=== PATIENT | male | born 1935 | race Caucasian/White ===

== ENCOUNTER 2017-11-08 15:39 | Inpatient (IN) ==
[2017-11-08] MEDS ORDERED: ONDANSETRON 4 MG/2 ML VIAL IV PRN (19:58)
[2017-11-08] MEDS ORDERED: ACETAMINOPHEN 325 MG TABLET PO PRN (19:58)
[2017-11-08] MEDS: MEROPENEM 1,000 MG in SODIUM CHLORIDE 0.9% 100 ML IV SCH (21:04)
[2017-11-08 22:04] LABS: Basophils % 0.4 % (0.0-0.8); Eosinophils # 0.1 10*3/uL (0.0-0.87); Hematocrit 39.2 VOL% (42.0-52.0); Hemoglobin 13.6 GM/DL (14.0-18.0); Immature Granulocytes % 0.4 %; Immature Granulocytes Absolute 0.02 #; Lymphocytes # 0.7 10*3/uL (1.4-4.0); Lymphocytes % 12.7 % (21.2-54.2); Mean Corpuscular HGB Conc 34.7 GM/DL (32-36); Mean Corpuscular Hemoglobin 32 PG (27-34); Mean Corpuscular Volume 92.2 FL (87-102); Mean Platelet Volume 9.5 FL (9.6-12.0); Monocytes # 0.4 10*3/uL (0.11-0.8); Monocytes % 7.9 % (1.7-12.7); Neutrophils # 4.2 10*3/uL (1.4-7.4); Neutrophils % 76.6 % (38.7-73.9); Platelet Count 230 T/CUMM (130-400); Red Blood Count 4.25 MC/CUMM (3.8-5.5); White Blood Count 5.4 T/CUMM (4-12)
[2017-11-08 22:38] LABS: Alanine Aminotransferase 46 U/L (16-61); Albumin 2.5 G/DL (3.4-5.0); Alkaline Phosphatase 201 U/L (45-117); Aspartate Amino Transferase 27 U/L (0-37); Blood Urea Nitrogen 16 MG/DL (7-18); Calcium 8.9 MG/DL (8.5-10.1); Glucose 117 MG/DL (74-106); Osmolality,Calculated 276.7 MOS/KG (273-304); Potassium 3.8 MMOL/L (3.5-5.1); Sodium 138 MMOL/L (136-145); Total Protein 7.5 G/DL (6.4-8.3); Troponin I 0.018 NG/ML (0.00-0.045)
[2017-11-09 04:19] LABS: Basophils % 0.5 % (0.0-0.8); Eosinophils # 0.2 10*3/uL (0.0-0.87); Eosinophils % 2.7 % (0.00-10.9); Hematocrit 35.6 VOL% (42.0-52.0); Hemoglobin 12.1 GM/DL (14.0-18.0); Immature Granulocytes % 0.5 %; Immature Granulocytes Absolute 0.03 #; Lymphocytes # 0.8 10*3/uL (1.4-4.0); Lymphocytes % 12.3 % (21.2-54.2); Mean Corpuscular Hemoglobin 32 PG (27-34); Mean Corpuscular Volume 93.2 FL (87-102); Mean Platelet Volume 9.2 FL (9.6-12.0); Monocytes # 0.7 10*3/uL (0.11-0.8); Monocytes % 10.6 % (1.7-12.7); Neutrophils # 4.7 10*3/uL (1.4-7.4); Neutrophils % 73.4 % (38.7-73.9); Platelet Count 205 T/CUMM (130-400); Red Blood Count 3.82 MC/CUMM (3.8-5.5); Red Cell Distribution Width 13.2 % (9.3-17.3); White Blood Count 6.3 T/CUMM (4-12)
[2017-11-09 05:00] LABS: Alanine Aminotransferase 39 U/L (16-61); Albumin 2.3 G/DL (3.4-5.0); Alkaline Phosphatase 181 U/L (45-117); Aspartate Amino Transferase 25 U/L (0-37); Blood Urea Nitrogen 17 MG/DL (7-18); Calcium 8.5 MG/DL (8.5-10.1); Cholesterol 125 MG/DL (50-200); Glucose 100 MG/DL (74-106); HDL Cholesterol 28 MG/DL (40-60); Osmolality,Calculated 282.3 MOS/KG (273-304); Potassium 4.3 MMOL/L (3.5-5.1); Risk Ratio 4.46; Sodium 141 MMOL/L (136-145); Total Protein 6.9 G/DL (6.4-8.3); Triglycerides 86 MG/DL (2-150); Troponin I 0.023 NG/ML (0.00-0.045); VLDL CHOLESTEROL 17.2 MG/DL
[2017-11-09] MEDS: COENZYME Q10 100 MG CAPSULE PO SCH (08:38)
[2017-11-09] MEDS: CLOPIDOGREL 75 MG TABLET PO SCH (08:38)
[2017-11-09] MEDS: PANTOPRAZOLE 40 MG TABLET PO SCH (08:38)
[2017-11-09] MEDS: ISOSORBIDE DINITRATE 20 MG TABLET PO SCH (08:38)
[2017-11-09] MEDS: ASPIRIN EC 81 MG TABLET PO SCH (08:38)
[2017-11-09] MEDS: LOSARTAN 25 MG TABLET PO SCH (08:38)
[2017-11-09] MEDS: MULTIVITAMIN (CENTRUM) TABLET PO SCH (08:38)
[2017-11-09] MEDS: ASCORBIC ACID 500 MG TABLET PO SCH (08:38)
[2017-11-09] MEDS: FUROSEMIDE 40 MG TABLET PO SCH (08:38)
[2017-11-09] MEDS: DUTASTERIDE 0.5 MG CAPSULE PO SCH (08:38)
[2017-11-09] MEDS: MEROPENEM 1,000 MG in SODIUM CHLORIDE 0.9% 100 ML IV SCH ×2 (08:39→20:40)
[2017-11-09] MEDS: ENOXAPARIN 40 MG/0.4 ML SYRINGE SUBCUT SCH (08:39)
[2017-11-09] MEDS: CARVEDILOL 6.25 MG TABLET PO SCH (08:41)
[2017-11-09] MEDS: ALBUTEROL 2.5 MG/3 ML NEB RESP TX SCH ×2 (12:52→19:02)
[2017-11-09 15:04] LABS: Apearance,Urine CLEAR (Clear); Bilirubin,Urine Negative (Negative); Blood, Urine Negative (Negative); Glucose,Urine (UA) Negative (Negative); Ketones,Urine Negative (Negative); Mucus,Urine Occasional /LPF (Occasional); Nitrite,Urine Negative (Negative); Protein,Urine Negative; RBC,Urine 1 /HPF (0-4); Urine Color Yellow (Yellow); Urine Urobilinogen < 2.0 EU/DL (0.2-1.0); WBC,Urine <1 /HPF (0-6)
[2017-11-10] MEDS: ALBUTEROL 2.5 MG/3 ML NEB RESP TX SCH ×4 (01:14→20:05)
[2017-11-10] MEDS: MULTIVITAMIN (CENTRUM) TABLET PO SCH (08:19)
[2017-11-10] MEDS: FUROSEMIDE 40 MG TABLET PO SCH (08:19)
[2017-11-10] MEDS: PANTOPRAZOLE 40 MG TABLET PO SCH (08:19)
[2017-11-10] MEDS: CLOPIDOGREL 75 MG TABLET PO SCH (08:19)
[2017-11-10] MEDS: ISOSORBIDE DINITRATE 20 MG TABLET PO SCH (08:19)
[2017-11-10] MEDS: DUTASTERIDE 0.5 MG CAPSULE PO SCH (08:19)
[2017-11-10] MEDS: LOSARTAN 25 MG TABLET PO SCH (08:19)
[2017-11-10] MEDS: ASPIRIN EC 81 MG TABLET PO SCH (08:19)
[2017-11-10] MEDS: CARVEDILOL 6.25 MG TABLET PO SCH (08:19)
[2017-11-10] MEDS: ASCORBIC ACID 500 MG TABLET PO SCH (08:19)
[2017-11-10] MEDS: ENOXAPARIN 40 MG/0.4 ML SYRINGE SUBCUT SCH (08:21)
[2017-11-10] MEDS: MEROPENEM 1,000 MG in SODIUM CHLORIDE 0.9% 100 ML IV SCH ×2 (08:22→20:29)
[2017-11-10] MEDS: COENZYME Q10 100 MG CAPSULE PO SCH (08:24)
[2017-11-11] MEDS: ALBUTEROL 2.5 MG/3 ML NEB RESP TX SCH ×4 (00:47→19:28)
[2017-11-11 05:52] LABS: Basophils % 0.4 % (0.0-0.8); Eosinophils # 0.1 10*3/uL (0.0-0.87); Eosinophils % 1.9 % (0.00-10.9); Hematocrit 38.5 VOL% (42.0-52.0); Immature Granulocytes % 0.4 %; Immature Granulocytes Absolute 0.03 #; Lymphocytes # 0.6 10*3/uL (1.4-4.0); Lymphocytes % 8.7 % (21.2-54.2); Mean Corpuscular HGB Conc 33.8 GM/DL (32-36); Mean Corpuscular Hemoglobin 32 PG (27-34); Mean Corpuscular Volume 93.2 FL (87-102); Mean Platelet Volume 9.5 FL (9.6-12.0); Monocytes # 0.6 10*3/uL (0.11-0.8); Monocytes % 9.1 % (1.7-12.7); Neutrophils # 5.6 10*3/uL (1.4-7.4); Neutrophils % 79.5 % (38.7-73.9); Platelet Count 207 T/CUMM (130-400); Red Blood Count 4.13 MC/CUMM (3.8-5.5); Red Cell Distribution Width 13.1 % (9.3-17.3)
[2017-11-11 06:06] LABS: Calcium 8.8 MG/DL (8.5-10.1); Osmolality,Calculated 277.7 MOS/KG (273-304); Potassium 4.4 MMOL/L (3.5-5.1)
[2017-11-11] MEDS ORDERED: BENZONATATE 100 MG CAPSULE PO ONE (09:00)
[2017-11-11] MEDS ORDERED: MEPERIDINE 25 MG/1 ML VIAL IM ONE (09:00)
[2017-11-11] MEDS ORDERED: diphenhydrAMINE 50 MG/1 ML VIAL IM ONE (09:00)
[2017-11-11] MEDS ORDERED: LIDOCAINE 2% 20 ML VIAL RESP TX ONE (09:30)
[2017-11-11] MEDS ORDERED: LIDOCAINE 1% 20 ML VIAL MISC INJ ONE (10:26)
[2017-11-11] MEDS: FUROSEMIDE 40 MG TABLET PO SCH (12:41)
[2017-11-11] MEDS: predniSONE 10 MG TABLET PO SCH (12:41)
[2017-11-11] MEDS: DUTASTERIDE 0.5 MG CAPSULE PO SCH (12:41)
[2017-11-11] MEDS: ASPIRIN EC 81 MG TABLET PO SCH (12:42)
[2017-11-11] MEDS: ASCORBIC ACID 500 MG TABLET PO SCH (12:42)
[2017-11-11] MEDS: CARVEDILOL 6.25 MG TABLET PO SCH (12:42)
[2017-11-11] MEDS: LOSARTAN 25 MG TABLET PO SCH (12:42)
[2017-11-11] MEDS: PANTOPRAZOLE 40 MG TABLET PO SCH (12:43)
[2017-11-11] MEDS: ISOSORBIDE DINITRATE 20 MG TABLET PO SCH (12:43)
[2017-11-11] MEDS: MULTIVITAMIN (CENTRUM) TABLET PO SCH (12:43)
[2017-11-11] MEDS: COENZYME Q10 100 MG CAPSULE PO SCH (12:44)
[2017-11-11] MEDS: MEROPENEM 1,000 MG in SODIUM CHLORIDE 0.9% 100 ML IV SCH ×2 (12:44→20:15)
[2017-11-11] MEDS: ACETYLCYSTEINE 600 MG CAPSULE PO SCH (20:15)
[2017-11-12] MEDS: ALBUTEROL 2.5 MG/3 ML NEB RESP TX SCH ×3 (00:56→13:33)
[2017-11-12 05:54] LABS: Basophils % 0.1 % (0.0-0.8); Eosinophils % 0.3 % (0.00-10.9); Hematocrit 38.1 VOL% (42.0-52.0); Hemoglobin 12.8 GM/DL (14.0-18.0); Immature Granulocytes % 0.6 %; Immature Granulocytes Absolute 0.04 #; Lymphocytes # 0.8 10*3/uL (1.4-4.0); Lymphocytes % 11.7 % (21.2-54.2); Mean Corpuscular HGB Conc 33.6 GM/DL (32-36); Mean Corpuscular Hemoglobin 31 PG (27-34); Mean Corpuscular Volume 92.9 FL (87-102); Mean Platelet Volume 9.4 FL (9.6-12.0); Monocytes # 0.5 10*3/uL (0.11-0.8); Monocytes % 6.7 % (1.7-12.7); Neutrophils # 5.6 10*3/uL (1.4-7.4); Neutrophils % 80.6 % (38.7-73.9); Platelet Count 199 T/CUMM (130-400); Red Cell Distribution Width 12.9 % (9.3-17.3); White Blood Count 6.9 T/CUMM (4-12)
[2017-11-12 06:38] LABS: Calcium 9.2 MG/DL (8.5-10.1); Osmolality,Calculated 282.5 MOS/KG (273-304); Potassium 4.4 MMOL/L (3.5-5.1)
[2017-11-12] MEDS: ISOSORBIDE DINITRATE 20 MG TABLET PO SCH (09:09)
[2017-11-12] MEDS: CARVEDILOL 6.25 MG TABLET PO SCH (09:09)
[2017-11-12] MEDS: PANTOPRAZOLE 40 MG TABLET PO SCH (09:09)
[2017-11-12] MEDS: ASCORBIC ACID 500 MG TABLET PO SCH (09:09)
[2017-11-12] MEDS: CLOPIDOGREL 75 MG TABLET PO SCH (09:09)
[2017-11-12] MEDS: LOSARTAN 25 MG TABLET PO SCH (09:09)
[2017-11-12] MEDS: ACETYLCYSTEINE 600 MG CAPSULE PO SCH (09:09)
[2017-11-12] MEDS: predniSONE 10 MG TABLET PO SCH (09:10)
[2017-11-12] MEDS: FUROSEMIDE 40 MG TABLET PO SCH (09:10)
[2017-11-12] MEDS: MULTIVITAMIN (CENTRUM) TABLET PO SCH (09:10)
[2017-11-12] MEDS: DUTASTERIDE 0.5 MG CAPSULE PO SCH (09:10)
[2017-11-12] MEDS: COENZYME Q10 100 MG CAPSULE PO SCH (09:10)
[2017-11-12] MEDS: MEROPENEM 1,000 MG in SODIUM CHLORIDE 0.9% 100 ML IV SCH (09:10)
[2017-11-12] MEDS: ASPIRIN EC 81 MG TABLET PO SCH (09:10)
[2017-11-12] MEDS: ENOXAPARIN 40 MG/0.4 ML SYRINGE SUBCUT SCH (09:10)
[2017-11-12] MEDS ORDERED: INFLUENZA VIRUS VACCINE 0.5 ML SYRINGE IM ONE (14:33)
[2017-11-12 20:10] VITALS: BP 125/48
== END 2017-11-12 15:45 | disposition home or self-care (01) | DRG 167 ==
LOC: N.5E 17:39 → SUATTDRO 17:39 → N.5E 11-12 15:08
PROVIDERS: ADMIT Internal Medicine; ATTEND Internal Medicine

== ENCOUNTER 2017-11-24 21:47 | Inpatient (IN) ==
[2017-11-25] MEDS ORDERED: ALBUTEROL 2.5 MG/3 ML NEB RESP TX PRN (00:11)
[2017-11-25] MEDS ORDERED: INFLUENZA VIRUS VACCINE 0.5 ML SYRINGE IM ONE (00:13)
[2017-11-25] MEDS ORDERED: ONDANSETRON 4 MG/2 ML VIAL IV PRN (00:36)
[2017-11-25] MEDS ORDERED: DOCUSATE SODIUM 100 MG CAPSULE PO PRN (00:36)
[2017-11-25] MEDS ORDERED: ACETAMINOPHEN 325 MG TABLET PO PRN (00:36)
[2017-11-25] MEDS ORDERED: SODIUM CHLORIDE 0.9% 1,000 ML IV SCH (01:00)
[2017-11-25] MEDS: ALBUTEROL/IPRATROPIUM 3 ML NEB RESP TX SCH ×4 (01:11→18:40)
[2017-11-25 03:12] LABS: Basophils % 0.2 % (0.0-0.8); Eosinophils # 0.2 10*3/uL (0.0-0.87); Eosinophils % 1.7 % (0.00-10.9); Hemoglobin 12.2 GM/DL (14.0-18.0); Immature Granulocytes % 0.9 %; Lymphocytes # 0.7 10*3/uL (1.4-4.0); Lymphocytes % 6.4 % (21.2-54.2); Mean Corpuscular HGB Conc 32.1 GM/DL (32-36); Mean Corpuscular Hemoglobin 30 PG (27-34); Mean Corpuscular Volume 93.8 FL (87-102); Mean Platelet Volume 10.3 FL (9.6-12.0); Monocytes # 0.9 10*3/uL (0.11-0.8); Monocytes % 7.8 % (1.7-12.7); Platelet Count 124 T/CUMM (130-400); Red Blood Count 4.05 MC/CUMM (3.8-5.5); Red Cell Distribution Width 13.5 % (9.3-17.3); White Blood Count 10.9 T/CUMM (4-12)
[2017-11-25 03:52] LABS: Albumin 2.2 G/DL (3.4-5.0); Bilirubin,Total 1.3 MG/DL (0.2-1.0); Calcium 8.2 MG/DL (8.5-10.1); Osmolality,Calculated 278.5 MOS/KG (273-304); Potassium 3.8 MMOL/L (3.5-5.1); Total Protein 7.1 G/DL (6.4-8.3)
[2017-11-25 03:55] LABS: Platelet Estimate Decreased
[2017-11-25] MEDS: PIPERACILLIN/TAZOBACTAM 3,375 MG in SODIUM CHLORIDE 0.9% 100 ML IV SCH ×3 (06:10→20:31)
[2017-11-25 06:50] LABS: Apearance,Urine CLEAR (Clear); Bilirubin,Urine Negative (Negative); Blood, Urine Negative (Negative); Glucose,Urine (UA) Negative (Negative); Ketones,Urine 5 mg/dL (Negative); Mucus,Urine Occasional /LPF (Occasional); Nitrite,Urine Negative (Negative); Protein,Urine 30 MG/DL; RBC,Urine 66 /HPF (0-4); Urine Color Amber (Yellow); Urine Specific Gravity 1.019 (1.001-1.035); WBC,Urine 1 /HPF (0-6)
[2017-11-25] MEDS ORDERED: guaiFENesin/DM ER 600-30 MG TABLET PO SCH (09:00)
[2017-11-25] MEDS ORDERED: UBIDECARENONE 10 MG PO SCH (09:00)
[2017-11-25] MEDS: MULTIVITAMIN (CENTRUM) TABLET PO SCH (09:46)
[2017-11-25] MEDS: CLOPIDOGREL 75 MG TABLET PO SCH (09:46)
[2017-11-25] MEDS: DUTASTERIDE 0.5 MG CAPSULE PO SCH (09:46)
[2017-11-25] MEDS: ASCORBIC ACID 500 MG TABLET PO SCH (09:46)
[2017-11-25] MEDS: ASPIRIN EC 81 MG TABLET PO SCH (09:46)
[2017-11-25] MEDS: FUROSEMIDE 40 MG TABLET PO SCH (09:46)
[2017-11-25] MEDS: CARVEDILOL 6.25 MG TABLET PO SCH (09:46)
[2017-11-25] MEDS: ISOSORBIDE DINITRATE 20 MG TABLET PO SCH (09:46)
[2017-11-25] MEDS: LOSARTAN 25 MG TABLET PO SCH (09:47)
[2017-11-25] MEDS: LEVOFLOXACIN INJ 750 MG in PREMIX 1 EACH IV SCH (10:32)
[2017-11-25] MEDS ORDERED: ALBUTEROL/IPRATROPIUM 3 ML NEB RESP TX PRN (11:07)
[2017-11-25] MEDS: MONTELUKAST 10 MG TABLET PO SCH (12:02)
[2017-11-25] MEDS ORDERED: TUBERCULIN SKIN TEST 0.1 ML SYRINGE INTRADERM ONE (15:08)
[2017-11-26] MEDS: ALBUTEROL/IPRATROPIUM 3 ML NEB RESP TX SCH ×4 (00:48→19:57)
[2017-11-26 04:55] LABS: Calcium 8.2 MG/DL (8.5-10.1); Osmolality,Calculated 271.1 MOS/KG (273-304); Potassium 3.8 MMOL/L (3.5-5.1)
[2017-11-26] MEDS: PIPERACILLIN/TAZOBACTAM 3,375 MG in SODIUM CHLORIDE 0.9% 100 ML IV SCH ×2 (05:29→16:02)
[2017-11-26 08:21] LABS: Basophils % 0.2 % (0.0-0.8); Eosinophils # 0.1 10*3/uL (0.0-0.87); Eosinophils % 0.8 % (0.00-10.9); Hematocrit 36.3 VOL% (42.0-52.0); Immature Granulocytes Absolute 0.11 #; Lymphocytes # 0.9 10*3/uL (1.4-4.0); Lymphocytes % 7.9 % (21.2-54.2); Mean Corpuscular HGB Conc 33.1 GM/DL (32-36); Mean Corpuscular Hemoglobin 30 PG (27-34); Mean Corpuscular Volume 91.9 FL (87-102); Mean Platelet Volume 10.5 FL (9.6-12.0); Monocytes # 1.1 10*3/uL (0.11-0.8); Monocytes % 9.7 % (1.7-12.7); Neutrophils # 9.1 10*3/uL (1.4-7.4); Neutrophils % 80.4 % (38.7-73.9); Platelet Count 117 T/CUMM (130-400); Red Blood Count 3.95 MC/CUMM (3.8-5.5); Red Cell Distribution Width 13.4 % (9.3-17.3); White Blood Count 11.3 T/CUMM (4-12)
[2017-11-26 08:41] LABS: Band Neutrophils 1 % (0-10); Lymphocytes 7 % (20-55); Platelet Estimate Decreased; Segmented Neutrophils 82 % (50-85); Total Cells Counted 100
[2017-11-26 08:42] LABS: Hypochromasia Slight
[2017-11-26] MEDS: LOSARTAN 25 MG TABLET PO SCH (09:56)
[2017-11-26] MEDS: MULTIVITAMIN (CENTRUM) TABLET PO SCH (09:56)
[2017-11-26] MEDS: ASPIRIN EC 81 MG TABLET PO SCH (09:57)
[2017-11-26] MEDS: CLOPIDOGREL 75 MG TABLET PO SCH (09:57)
[2017-11-26] MEDS: ISOSORBIDE DINITRATE 20 MG TABLET PO SCH (09:57)
[2017-11-26] MEDS: ASCORBIC ACID 500 MG TABLET PO SCH (09:57)
[2017-11-26] MEDS: FUROSEMIDE 40 MG TABLET PO SCH (09:58)
[2017-11-26] MEDS: DUTASTERIDE 0.5 MG CAPSULE PO SCH (09:58)
[2017-11-26] MEDS: MONTELUKAST 10 MG TABLET PO SCH (09:58)
[2017-11-26] MEDS: CARVEDILOL 6.25 MG TABLET PO SCH (09:58)
[2017-11-26] MEDS: LEVOFLOXACIN INJ 750 MG in PREMIX 1 EACH IV SCH (09:58)
[2017-11-26] MEDS ORDERED: MAGNESIUM HYDROXIDE SUSP 30 ML UDCUP PO ONE (11:12)
[2017-11-26] MEDS ORDERED: VANCOMYCIN INJ 1,500 MG in SODIUM CHLORIDE 0.9% 500 ML IV ONE ×2 (14:00→21:00)
[2017-11-26] MEDS ORDERED: FUROSEMIDE 40 MG TABLET PO SCH (21:00)
[2017-11-27] MEDS: ALBUTEROL/IPRATROPIUM 3 ML NEB RESP TX SCH ×4 (01:24→19:19)
[2017-11-27] MEDS: PIPERACILLIN/TAZOBACTAM 3,375 MG in SODIUM CHLORIDE 0.9% 100 ML IV SCH ×2 (02:11→14:37)
[2017-11-27 04:57] LABS: Basophils % 0.2 % (0.0-0.8); Eosinophils # 0.1 10*3/uL (0.0-0.87); Eosinophils % 0.9 % (0.00-10.9); Hematocrit 34.3 VOL% (42.0-52.0); Hemoglobin 11.6 GM/DL (14.0-18.0); Immature Granulocytes % 1.2 %; Immature Granulocytes Absolute 0.13 #; Lymphocytes # 0.7 10*3/uL (1.4-4.0); Lymphocytes % 6.6 % (21.2-54.2); Mean Corpuscular HGB Conc 33.8 GM/DL (32-36); Mean Corpuscular Hemoglobin 31 PG (27-34); Mean Corpuscular Volume 91.5 FL (87-102); Mean Platelet Volume 10.1 FL (9.6-12.0); Monocytes # 1.1 10*3/uL (0.11-0.8); Monocytes % 9.6 % (1.7-12.7); Neutrophils # 8.9 10*3/uL (1.4-7.4); Neutrophils % 81.5 % (38.7-73.9); Platelet Count 104 T/CUMM (130-400); Red Blood Count 3.75 MC/CUMM (3.8-5.5); Red Cell Distribution Width 13.5 % (9.3-17.3); White Blood Count 10.9 T/CUMM (4-12)
[2017-11-27 05:26] LABS: Hypochromasia 1+; Platelet Estimate Decreased
[2017-11-27 05:26] LABS: Calcium 8.4 MG/DL (8.5-10.1); Osmolality,Calculated 274.8 MOS/KG (273-304); Potassium 3.5 MMOL/L (3.5-5.1)
[2017-11-27 05:27] LABS: Ovalocytes Slight
[2017-11-27] MEDS ORDERED: FUROSEMIDE 40 MG TABLET PO SCH (08:00)
[2017-11-27] MEDS ORDERED: VANCOMYCIN INJ 1,250 MG in SODIUM CHLORIDE 0.9% 250 ML IV SCH (08:00)
[2017-11-27] MEDS ORDERED: FUROSEMIDE 40 MG/4 ML VIAL IV ONE (09:59)
[2017-11-27] MEDS: LOSARTAN 25 MG TABLET PO SCH (10:45)
[2017-11-27] MEDS: ASCORBIC ACID 500 MG TABLET PO SCH (10:45)
[2017-11-27] MEDS: ISOSORBIDE DINITRATE 20 MG TABLET PO SCH (10:45)
[2017-11-27] MEDS: CARVEDILOL 6.25 MG TABLET PO SCH (10:45)
[2017-11-27] MEDS: ASPIRIN EC 81 MG TABLET PO SCH (10:45)
[2017-11-27] MEDS: MULTIVITAMIN (CENTRUM) TABLET PO SCH (10:45)
[2017-11-27] MEDS: MONTELUKAST 10 MG TABLET PO SCH (10:45)
[2017-11-27] MEDS: CLOPIDOGREL 75 MG TABLET PO SCH (10:45)
[2017-11-27] MEDS: DUTASTERIDE 0.5 MG CAPSULE PO SCH (10:45)
[2017-11-27] MEDS: POTASSIUM CHLORIDE 10 MEQ TABLET PO SCH ×2 (15:42→20:58)
[2017-11-27] MEDS: FUROSEMIDE 40 MG/4 ML VIAL IV SCH (15:42)
[2017-11-27] MEDS: LEVOFLOXACIN INJ 750 MG in PREMIX 1 EACH IV SCH (17:04)
[2017-11-28] MEDS: ALBUTEROL/IPRATROPIUM 3 ML NEB RESP TX SCH ×4 (00:33→19:07)
[2017-11-28 04:31] LABS: Basophils % 0.2 % (0.0-0.8); Eosinophils # 0.3 10*3/uL (0.0-0.87); Eosinophils % 2.9 % (0.00-10.9); Hematocrit 33.9 VOL% (42.0-52.0); Hemoglobin 11.4 GM/DL (14.0-18.0); Immature Granulocytes % 0.7 %; Immature Granulocytes Absolute 0.06 #; Lymphocytes # 0.7 10*3/uL (1.4-4.0); Lymphocytes % 8.3 % (21.2-54.2); Mean Corpuscular HGB Conc 33.6 GM/DL (32-36); Mean Corpuscular Hemoglobin 31 PG (27-34); Mean Corpuscular Volume 90.9 FL (87-102); Mean Platelet Volume 10.5 FL (9.6-12.0); Monocytes # 0.8 10*3/uL (0.11-0.8); Monocytes % 8.7 % (1.7-12.7); Neutrophils # 7.1 10*3/uL (1.4-7.4); Neutrophils % 79.2 % (38.7-73.9); Platelet Count 133 T/CUMM (130-400); Red Blood Count 3.73 MC/CUMM (3.8-5.5); Red Cell Distribution Width 13.4 % (9.3-17.3); White Blood Count 8.9 T/CUMM (4-12)
[2017-11-28 04:57] LABS: Hypochromasia 1+; Platelet Estimate Normal
[2017-11-28 05:02] LABS: Calcium 8.4 MG/DL (8.5-10.1); Osmolality,Calculated 276.8 MOS/KG (273-304); Potassium 3.4 MMOL/L (3.5-5.1)
[2017-11-28] MEDS: ASCORBIC ACID 500 MG TABLET PO SCH (09:22)
[2017-11-28] MEDS: LOSARTAN 25 MG TABLET PO SCH (09:22)
[2017-11-28] MEDS: POTASSIUM CHLORIDE 10 MEQ TABLET PO SCH ×2 (09:22→20:40)
[2017-11-28] MEDS: CARVEDILOL 6.25 MG TABLET PO SCH (09:22)
[2017-11-28] MEDS: ISOSORBIDE DINITRATE 20 MG TABLET PO SCH (09:22)
[2017-11-28] MEDS: CLOPIDOGREL 75 MG TABLET PO SCH (09:22)
[2017-11-28] MEDS: DUTASTERIDE 0.5 MG CAPSULE PO SCH (09:22)
[2017-11-28] MEDS: ASPIRIN EC 81 MG TABLET PO SCH (09:22)
[2017-11-28] MEDS: FUROSEMIDE 40 MG/4 ML VIAL IV SCH ×2 (09:22→15:53)
[2017-11-28] MEDS: MULTIVITAMIN (CENTRUM) TABLET PO SCH (09:22)
[2017-11-28] MEDS: MONTELUKAST 10 MG TABLET PO SCH (09:22)
[2017-11-28] MEDS: MUPIROCIN 2% OINT 22 GM TUBE TOP SCH ×2 (15:53→20:41)
[2017-11-29] MEDS: ALBUTEROL/IPRATROPIUM 3 ML NEB RESP TX SCH ×4 (00:30→19:47)
[2017-11-29 05:28] LABS: Basophils % 0.4 % (0.0-0.8); Eosinophils # 0.2 10*3/uL (0.0-0.87); Eosinophils % 2.4 % (0.00-10.9); Hematocrit 36.5 VOL% (42.0-52.0); Hemoglobin 12.2 GM/DL (14.0-18.0); Immature Granulocytes % 0.9 %; Immature Granulocytes Absolute 0.07 #; Lymphocytes # 0.8 10*3/uL (1.4-4.0); Lymphocytes % 10.3 % (21.2-54.2); Mean Corpuscular HGB Conc 33.4 GM/DL (32-36); Mean Corpuscular Hemoglobin 31 PG (27-34); Mean Corpuscular Volume 91.9 FL (87-102); Mean Platelet Volume 11.1 FL (9.6-12.0); Monocytes # 0.7 10*3/uL (0.11-0.8); Monocytes % 9.2 % (1.7-12.7); Neutrophils # 5.8 10*3/uL (1.4-7.4); Neutrophils % 76.8 % (38.7-73.9); Red Blood Count 3.97 MC/CUMM (3.8-5.5); Red Cell Distribution Width 13.4 % (9.3-17.3); White Blood Count 7.5 T/CUMM (4-12)
[2017-11-29 05:32] LABS: Platelet Count 108 T/CUMM (130-400)
[2017-11-29 05:53] LABS: Albumin 1.9 G/DL (3.4-5.0); Bilirubin,Total 1.1 MG/DL (0.2-1.0); Calcium 8.8 MG/DL (8.5-10.1); Osmolality,Calculated 277.7 MOS/KG (273-304); Total Protein 6.8 G/DL (6.4-8.3)
[2017-11-29 06:12] LABS: Band Neutrophils 5 % (0-10); Eosinophils 1 % (0-10); Lymphocytes 13 % (20-55); Platelet Estimate Decreased; Segmented Neutrophils 68 % (50-85); Total Cells Counted 100
[2017-11-29] MEDS: MAGNESIUM HYDROXIDE SUSP 30 ML UDCUP PO PRN (06:31)
[2017-11-29] MEDS: CLOPIDOGREL 75 MG TABLET PO SCH (09:48)
[2017-11-29] MEDS: POTASSIUM CHLORIDE 10 MEQ TABLET PO SCH ×2 (09:48→21:20)
[2017-11-29] MEDS: MULTIVITAMIN (CENTRUM) TABLET PO SCH (09:48)
[2017-11-29] MEDS: MONTELUKAST 10 MG TABLET PO SCH (09:48)
[2017-11-29] MEDS: FUROSEMIDE 40 MG/4 ML VIAL IV SCH ×2 (09:49→16:48)
[2017-11-29] MEDS: DUTASTERIDE 0.5 MG CAPSULE PO SCH (09:49)
[2017-11-29] MEDS: ISOSORBIDE DINITRATE 20 MG TABLET PO SCH (09:49)
[2017-11-29] MEDS: CARVEDILOL 6.25 MG TABLET PO SCH (09:49)
[2017-11-29] MEDS: LOSARTAN 25 MG TABLET PO SCH (09:49)
[2017-11-29] MEDS: ASPIRIN EC 81 MG TABLET PO SCH (09:49)
[2017-11-29] MEDS: ASCORBIC ACID 500 MG TABLET PO SCH (09:49)
[2017-11-29] MEDS: MUPIROCIN 2% OINT 22 GM TUBE TOP SCH ×3 (09:50→21:20)
[2017-11-29] MEDS: methylPREDNISolone SOD SUC 40 MG/1 ML VIAL IV SCH (13:45)
[2017-11-30] MEDS: ALBUTEROL/IPRATROPIUM 3 ML NEB RESP TX SCH ×4 (00:27→19:49)
[2017-11-30 05:37] LABS: Basophils % 0.1 % (0.0-0.8); Hematocrit 35.3 VOL% (42.0-52.0); Hemoglobin 11.5 GM/DL (14.0-18.0); Immature Granulocytes Absolute 0.07 #; Lymphocytes # 0.8 10*3/uL (1.4-4.0); Lymphocytes % 11.4 % (21.2-54.2); Mean Corpuscular HGB Conc 32.6 GM/DL (32-36); Mean Corpuscular Hemoglobin 30 PG (27-34); Mean Corpuscular Volume 91.5 FL (87-102); Mean Platelet Volume 10.4 FL (9.6-12.0); Monocytes # 0.4 10*3/uL (0.11-0.8); Monocytes % 5.4 % (1.7-12.7); Neutrophils # 5.5 10*3/uL (1.4-7.4); Neutrophils % 82.1 % (38.7-73.9); Platelet Count 165 T/CUMM (130-400); Red Blood Count 3.86 MC/CUMM (3.8-5.5); Red Cell Distribution Width 13.6 % (9.3-17.3); White Blood Count 6.7 T/CUMM (4-12)
[2017-11-30 05:58] LABS: Calcium 8.9 MG/DL (8.5-10.1); Osmolality,Calculated 280.8 MOS/KG (273-304); Potassium 4.3 MMOL/L (3.5-5.1)
[2017-11-30 07:39] LABS: Platelet Estimate Normal
[2017-11-30] MEDS: ISOSORBIDE DINITRATE 20 MG TABLET PO SCH (09:22)
[2017-11-30] MEDS: CARVEDILOL 6.25 MG TABLET PO SCH (09:22)
[2017-11-30] MEDS: FUROSEMIDE 40 MG/4 ML VIAL IV SCH ×2 (09:22→17:21)
[2017-11-30] MEDS: MAGNESIUM HYDROXIDE SUSP 30 ML UDCUP PO PRN (09:22)
[2017-11-30] MEDS: POTASSIUM CHLORIDE 10 MEQ TABLET PO SCH ×2 (09:22→21:12)
[2017-11-30] MEDS: MULTIVITAMIN (CENTRUM) TABLET PO SCH (09:22)
[2017-11-30] MEDS: CLOPIDOGREL 75 MG TABLET PO SCH (09:22)
[2017-11-30] MEDS: ASPIRIN EC 81 MG TABLET PO SCH (09:22)
[2017-11-30] MEDS: methylPREDNISolone SOD SUC 40 MG/1 ML VIAL IV SCH (09:22)
[2017-11-30] MEDS: ASCORBIC ACID 500 MG TABLET PO SCH (09:22)
[2017-11-30] MEDS: MONTELUKAST 10 MG TABLET PO SCH (09:22)
[2017-11-30] MEDS: DUTASTERIDE 0.5 MG CAPSULE PO SCH (09:22)
[2017-11-30] MEDS: LOSARTAN 25 MG TABLET PO SCH (09:27)
[2017-11-30] MEDS: MUPIROCIN 2% OINT 22 GM TUBE TOP SCH ×3 (09:27→21:12)
[2017-11-30] MEDS ORDERED: TAMSULOSIN 0.4 MG CAPSULE PO ONE (22:30)
[2017-12-01] MEDS: ALBUTEROL/IPRATROPIUM 3 ML NEB RESP TX SCH ×4 (01:46→19:58)
[2017-12-01 06:22] LABS: Basophils % 0.1 % (0.0-0.8); Eosinophils # 0.1 10*3/uL (0.0-0.87); Eosinophils % 1.1 % (0.00-10.9); Hematocrit 36.1 VOL% (42.0-52.0); Hemoglobin 11.6 GM/DL (14.0-18.0); Immature Granulocytes Absolute 0.07 #; Lymphocytes # 1.3 10*3/uL (1.4-4.0); Lymphocytes % 18.2 % (21.2-54.2); Mean Corpuscular HGB Conc 32.1 GM/DL (32-36); Mean Corpuscular Hemoglobin 30 PG (27-34); Mean Platelet Volume 10.6 FL (9.6-12.0); Monocytes # 0.5 10*3/uL (0.11-0.8); Monocytes % 7.7 % (1.7-12.7); Neutrophils # 5.1 10*3/uL (1.4-7.4); Neutrophils % 71.9 % (38.7-73.9); Platelet Count 176 T/CUMM (130-400); Red Blood Count 3.88 MC/CUMM (3.8-5.5); Red Cell Distribution Width 13.9 % (9.3-17.3)
[2017-12-01 07:41] LABS: Band Neutrophils 1 % (0-10); Eosinophils 4 % (0-10); Lymphocytes 21 % (20-55); Platelet Estimate Normal; Segmented Neutrophils 70 % (50-85); Total Cells Counted 100
[2017-12-01 07:48] LABS: Calcium 8.5 MG/DL (8.5-10.1); Potassium 4.7 MMOL/L (3.5-5.1)
[2017-12-01] MEDS: ISOSORBIDE DINITRATE 20 MG TABLET PO SCH (08:28)
[2017-12-01] MEDS: DUTASTERIDE 0.5 MG CAPSULE PO SCH (08:28)
[2017-12-01] MEDS: CLOPIDOGREL 75 MG TABLET PO SCH (08:28)
[2017-12-01] MEDS: ASPIRIN EC 81 MG TABLET PO SCH (08:28)
[2017-12-01] MEDS: ASCORBIC ACID 500 MG TABLET PO SCH (08:28)
[2017-12-01] MEDS: MONTELUKAST 10 MG TABLET PO SCH (08:28)
[2017-12-01] MEDS: LOSARTAN 25 MG TABLET PO SCH (08:28)
[2017-12-01] MEDS: POTASSIUM CHLORIDE 10 MEQ TABLET PO SCH ×2 (08:28→21:22)
[2017-12-01] MEDS: MULTIVITAMIN (CENTRUM) TABLET PO SCH (08:28)
[2017-12-01] MEDS: CARVEDILOL 6.25 MG TABLET PO SCH (08:28)
[2017-12-01] MEDS: methylPREDNISolone SOD SUC 40 MG/1 ML VIAL IV SCH (08:30)
[2017-12-01] MEDS: MUPIROCIN 2% OINT 22 GM TUBE TOP SCH ×3 (08:30→21:22)
[2017-12-01] MEDS: FUROSEMIDE 40 MG/4 ML VIAL IV SCH (11:01)
[2017-12-01] MEDS: metOLazone 2.5 MG TABLET PO SCH (13:04)
[2017-12-01] MEDS: TAMSULOSIN 0.4 MG CAPSULE PO SCH (13:04)
[2017-12-01] MEDS: FUROSEMIDE 40 MG TABLET PO SCH (15:59)
[2017-12-02] MEDS: ALBUTEROL/IPRATROPIUM 3 ML NEB RESP TX SCH ×3 (00:46→12:42)
[2017-12-02 05:37] LABS: Basophils % 0.3 % (0.0-0.8); Eosinophils # 0.1 10*3/uL (0.0-0.87); Eosinophils % 1.3 % (0.00-10.9); Hematocrit 35.9 VOL% (42.0-52.0); Hemoglobin 11.9 GM/DL (14.0-18.0); Immature Granulocytes % 0.8 %; Immature Granulocytes Absolute 0.05 #; Lymphocytes # 1.2 10*3/uL (1.4-4.0); Lymphocytes % 20.2 % (21.2-54.2); Mean Corpuscular HGB Conc 33.1 GM/DL (32-36); Mean Corpuscular Hemoglobin 30 PG (27-34); Mean Corpuscular Volume 91.8 FL (87-102); Mean Platelet Volume 10.2 FL (9.6-12.0); Monocytes # 0.5 10*3/uL (0.11-0.8); Monocytes % 8.1 % (1.7-12.7); Neutrophils # 4.2 10*3/uL (1.4-7.4); Neutrophils % 69.3 % (38.7-73.9); Platelet Count 208 T/CUMM (130-400); Red Blood Count 3.91 MC/CUMM (3.8-5.5); Red Cell Distribution Width 13.7 % (9.3-17.3)
[2017-12-02 05:51] LABS: Calcium 8.9 MG/DL (8.5-10.1); Osmolality,Calculated 278.8 MOS/KG (273-304); Potassium 4.1 MMOL/L (3.5-5.1)
[2017-12-02 05:59] LABS: Hypochromasia Slight; Microcytosis 1+; Platelet Estimate Normal
[2017-12-02] MEDS: TAMSULOSIN 0.4 MG CAPSULE PO SCH (08:55)
[2017-12-02] MEDS: FUROSEMIDE 40 MG TABLET PO SCH (08:55)
[2017-12-02] MEDS: MONTELUKAST 10 MG TABLET PO SCH (08:55)
[2017-12-02] MEDS: MULTIVITAMIN (CENTRUM) TABLET PO SCH (08:55)
[2017-12-02] MEDS: ASPIRIN EC 81 MG TABLET PO SCH (08:55)
[2017-12-02] MEDS: DUTASTERIDE 0.5 MG CAPSULE PO SCH (08:56)
[2017-12-02] MEDS: metOLazone 2.5 MG TABLET PO SCH (08:56)
[2017-12-02] MEDS: LOSARTAN 25 MG TABLET PO SCH (08:56)
[2017-12-02] MEDS: ISOSORBIDE DINITRATE 20 MG TABLET PO SCH (08:56)
[2017-12-02] MEDS: CLOPIDOGREL 75 MG TABLET PO SCH (08:56)
[2017-12-02] MEDS: ASCORBIC ACID 500 MG TABLET PO SCH (08:56)
[2017-12-02] MEDS: POTASSIUM CHLORIDE 10 MEQ TABLET PO SCH (08:57)
[2017-12-02] MEDS: CARVEDILOL 6.25 MG TABLET PO SCH (08:57)
[2017-12-02] MEDS: methylPREDNISolone SOD SUC 40 MG/1 ML VIAL IV SCH (09:00)
[2017-12-02] MEDS: MUPIROCIN 2% OINT 22 GM TUBE TOP SCH (11:26)
[2017-12-02 13:38] VITALS: BP 106/44
== END 2017-12-02 14:28 | disposition swing bed (61) | DRG 193 ==
LOC: N.5E 22:59 → SUATTDRO 22:59
PROVIDERS: ADMIT Internal Medicine; ATTEND Hospitalist

== ENCOUNTER 2018-01-26 23:57 | Inpatient (IN) ==
[2018-01-27] MEDS ORDERED: ACETAMINOPHEN 325 MG TABLET PO PRN (01:31)
[2018-01-27] MEDS ORDERED: DOCUSATE SODIUM 100 MG CAPSULE PO PRN (01:31)
[2018-01-27] MEDS ORDERED: ONDANSETRON 4 MG/2 ML VIAL IV PRN (01:31)
[2018-01-27] MEDS ORDERED: MORPHINE 4 MG/1 ML VIAL IV PRN (01:31)
[2018-01-27 03:33] LABS: Basophils % 0.2 % (0.0-0.8); Eosinophils # 0.3 10*3/uL (0.0-0.87); Hematocrit 31.9 VOL% (42.0-52.0); Hemoglobin 10.4 GM/DL (14.0-18.0); Immature Granulocytes % 0.8 %; Immature Granulocytes Absolute 0.07 #; Lymphocytes # 1.1 10*3/uL (1.4-4.0); Lymphocytes % 13.1 % (21.2-54.2); Mean Corpuscular HGB Conc 32.6 GM/DL (32-36); Mean Corpuscular Hemoglobin 30 PG (27-34); Mean Platelet Volume 9.2 FL (9.6-12.0); Monocytes # 0.6 10*3/uL (0.11-0.8); Monocytes % 6.9 % (1.7-12.7); Neutrophils # 6.3 10*3/uL (1.4-7.4); Platelet Count 144 T/CUMM (130-400); Red Blood Count 3.43 MC/CUMM (3.8-5.5); Red Cell Distribution Width 16.1 % (9.3-17.3); White Blood Count 8.3 T/CUMM (4-12)
[2018-01-27 04:03] LABS: Albumin 2.3 G/DL (3.4-5.0); Bilirubin,Total 0.7 MG/DL (0.2-1.0); Osmolality,Calculated 278.8 MOS/KG (273-304); Potassium 3.7 MMOL/L (3.5-5.1); Total Protein 6.8 G/DL (6.4-8.3)
[2018-01-27 05:25] LABS: Apearance,Urine CLOUDY (Clear); Bilirubin,Urine Negative (Negative); Blood, Urine Small mg/dL (Negative); Glucose,Urine (UA) Negative (Negative); Ketones,Urine Negative (Negative); Nitrite,Urine Negative (Negative); Protein,Urine 30 MG/DL; RBC,Urine 26 /HPF (0-4); Urine Color Amber (Yellow); Urine Specific Gravity 1.013 (1.001-1.035); Urine Urobilinogen < 2.0 EU/DL (0.2-1.0); WBC,Urine 1286 /HPF (0-6)
[2018-01-27 05:31] LABS: Calcium 8.4 MG/DL (8.5-10.1)
[2018-01-27] MEDS: cefTRIAXone 1,000 MG in SYRINGE 1 EACH IV SCH (05:45)
[2018-01-27] MEDS: PANTOPRAZOLE 40 MG TABLET PO SCH (09:22)
[2018-01-27] MEDS: ENOXAPARIN 40 MG/0.4 ML SYRINGE SUBCUT SCH (09:23)
[2018-01-27] MEDS ORDERED: TUBERCULIN SKIN TEST 0.1 ML SYRINGE INTRADERM ONE (15:30)
[2018-01-27] MEDS: ASPIRIN EC 81 MG TABLET PO SCH (16:00)
[2018-01-27] MEDS: DUTASTERIDE 0.5 MG CAPSULE PO SCH (16:00)
[2018-01-27] MEDS: FUROSEMIDE 40 MG TABLET PO SCH (16:01)
[2018-01-27] MEDS: LOSARTAN 25 MG TABLET PO SCH (16:01)
[2018-01-27] MEDS: ISOSORBIDE DINITRATE 20 MG TABLET PO SCH (16:01)
[2018-01-27] MEDS: CARVEDILOL 6.25 MG TABLET PO SCH (16:01)
[2018-01-27] MEDS: MULTIVITAMIN (CENTRUM) TABLET PO SCH (16:01)
[2018-01-27] MEDS: CLOPIDOGREL 75 MG TABLET PO SCH (16:02)
[2018-01-27] MEDS: TAMSULOSIN 0.4 MG CAPSULE PO SCH (16:02)
[2018-01-27] MEDS: metOLazone 2.5 MG TABLET PO SCH (16:02)
[2018-01-27] MEDS: POTASSIUM CHLORIDE 10 MEQ TABLET PO SCH ×2 (16:03→20:51)
[2018-01-27] MEDS: DOCUSATE/SENNA 50-8.6 MG TABLET PO SCH (20:51)
[2018-01-28 05:23] LABS: Basophils % 0.4 % (0.0-0.8); Eosinophils # 0.3 10*3/uL (0.0-0.87); Eosinophils % 4.4 % (0.00-10.9); Hematocrit 34.4 VOL% (42.0-52.0); Hemoglobin 11.5 GM/DL (14.0-18.0); Immature Granulocytes % 0.8 %; Immature Granulocytes Absolute 0.06 #; Lymphocytes # 1.4 10*3/uL (1.4-4.0); Lymphocytes % 18.4 % (21.2-54.2); Mean Corpuscular HGB Conc 33.4 GM/DL (32-36); Mean Corpuscular Hemoglobin 31 PG (27-34); Mean Corpuscular Volume 92.2 FL (87-102); Mean Platelet Volume 9.4 FL (9.6-12.0); Monocytes # 0.8 10*3/uL (0.11-0.8); Monocytes % 10.2 % (1.7-12.7); Neutrophils # 4.9 10*3/uL (1.4-7.4); Neutrophils % 65.8 % (38.7-73.9); Platelet Count 153 T/CUMM (130-400); Red Blood Count 3.73 MC/CUMM (3.8-5.5); White Blood Count 7.4 T/CUMM (4-12)
[2018-01-28] MEDS: cefTRIAXone 1,000 MG in SYRINGE 1 EACH IV SCH (05:36)
[2018-01-28 05:42] LABS: Calcium 8.6 MG/DL (8.5-10.1); Osmolality,Calculated 275.8 MOS/KG (273-304); Potassium 3.7 MMOL/L (3.5-5.1)
[2018-01-28] MEDS: ASPIRIN EC 81 MG TABLET PO SCH (10:22)
[2018-01-28] MEDS: DOCUSATE/SENNA 50-8.6 MG TABLET PO SCH ×2 (10:23→20:40)
[2018-01-28] MEDS: DUTASTERIDE 0.5 MG CAPSULE PO SCH (10:23)
[2018-01-28] MEDS: metOLazone 2.5 MG TABLET PO SCH (10:23)
[2018-01-28] MEDS: TAMSULOSIN 0.4 MG CAPSULE PO SCH (10:23)
[2018-01-28] MEDS: MULTIVITAMIN (CENTRUM) TABLET PO SCH (10:23)
[2018-01-28] MEDS: FUROSEMIDE 40 MG TABLET PO SCH (10:23)
[2018-01-28] MEDS: CARVEDILOL 6.25 MG TABLET PO SCH (10:23)
[2018-01-28] MEDS: ISOSORBIDE DINITRATE 20 MG TABLET PO SCH (10:23)
[2018-01-28] MEDS: LOSARTAN 25 MG TABLET PO SCH (10:24)
[2018-01-28] MEDS: CLOPIDOGREL 75 MG TABLET PO SCH (10:24)
[2018-01-28] MEDS: ENOXAPARIN 40 MG/0.4 ML SYRINGE SUBCUT SCH ×2 (10:24→10:40)
[2018-01-28] MEDS: POTASSIUM CHLORIDE 10 MEQ TABLET PO SCH ×2 (10:24→20:41)
[2018-01-28] MEDS: PANTOPRAZOLE 40 MG TABLET PO SCH (10:36)
[2018-01-28] MEDS ORDERED: MAGNESIUM SULF RIDER 2 GM in PREMIX 1 EACH IV PRN (15:41)
[2018-01-28] MEDS ORDERED: MAGNESIUM SULF RIDER 4 GM in PREMIX 1 EACH IV PRN (15:41)
[2018-01-29] MEDS: cefTRIAXone 1,000 MG in SYRINGE 1 EACH IV SCH (06:55)
[2018-01-29] MEDS: metOLazone 2.5 MG TABLET PO SCH (09:59)
[2018-01-29] MEDS: ISOSORBIDE DINITRATE 20 MG TABLET PO SCH (09:59)
[2018-01-29] MEDS: MULTIVITAMIN (CENTRUM) TABLET PO SCH (09:59)
[2018-01-29] MEDS: FUROSEMIDE 40 MG TABLET PO SCH (09:59)
[2018-01-29] MEDS: DOCUSATE/SENNA 50-8.6 MG TABLET PO SCH ×2 (09:59→21:23)
[2018-01-29] MEDS: ASPIRIN EC 81 MG TABLET PO SCH (09:59)
[2018-01-29] MEDS: CARVEDILOL 6.25 MG TABLET PO SCH (09:59)
[2018-01-29] MEDS: TAMSULOSIN 0.4 MG CAPSULE PO SCH (09:59)
[2018-01-29] MEDS: DUTASTERIDE 0.5 MG CAPSULE PO SCH (09:59)
[2018-01-29] MEDS: CLOPIDOGREL 75 MG TABLET PO SCH (09:59)
[2018-01-29] MEDS: PANTOPRAZOLE 40 MG TABLET PO SCH (09:59)
[2018-01-29] MEDS: LOSARTAN 25 MG TABLET PO SCH (09:59)
[2018-01-29] MEDS: POTASSIUM CHLORIDE 10 MEQ TABLET PO SCH ×2 (09:59→21:23)
[2018-01-29] MEDS: ENOXAPARIN 40 MG/0.4 ML SYRINGE SUBCUT SCH (10:00)
[2018-01-29] MEDS ORDERED: LEVOFLOXACIN 500 MG TABLET PO SCH (13:00)
[2018-01-29] MEDS ORDERED: AMOXICILLIN 875 MG TABLET PO SCH (21:00)
[2018-01-30] MEDS: CLOPIDOGREL 75 MG TABLET PO SCH (09:00)
[2018-01-30] MEDS: PANTOPRAZOLE 40 MG TABLET PO SCH (09:00)
[2018-01-30] MEDS: FUROSEMIDE 40 MG TABLET PO SCH (09:00)
[2018-01-30] MEDS ORDERED: LEVOFLOXACIN 500 MG TABLET PO SCH (09:00)
[2018-01-30] MEDS: ASPIRIN EC 81 MG TABLET PO SCH (09:01)
[2018-01-30] MEDS: MULTIVITAMIN (CENTRUM) TABLET PO SCH (09:01)
[2018-01-30] MEDS: DOCUSATE/SENNA 50-8.6 MG TABLET PO SCH (09:01)
[2018-01-30] MEDS: TAMSULOSIN 0.4 MG CAPSULE PO SCH (09:01)
[2018-01-30] MEDS: POTASSIUM CHLORIDE 10 MEQ TABLET PO SCH (09:01)
[2018-01-30] MEDS: DUTASTERIDE 0.5 MG CAPSULE PO SCH (09:01)
[2018-01-30] MEDS: ISOSORBIDE DINITRATE 20 MG TABLET PO SCH (09:01)
[2018-01-30] MEDS: CARVEDILOL 6.25 MG TABLET PO SCH (09:01)
[2018-01-30] MEDS: LOSARTAN 25 MG TABLET PO SCH (09:01)
[2018-01-30] MEDS: ENOXAPARIN 40 MG/0.4 ML SYRINGE SUBCUT SCH (09:02)
[2018-01-30] MEDS: metOLazone 2.5 MG TABLET PO SCH (09:02)
[2018-01-30 11:23] VITALS: BP 111/50
== END 2018-01-30 14:00 | disposition swing bed (61) | DRG 536 ==
LOC: N.3E 23:57 → INTOOBSV 23:57 → SUATTDRO 23:57 → N.3E 01-27 01:30 → EDSTATUS 01-28 12:18 → N.3EOUT 01-28 12:19
PROVIDERS: ADMIT Internal Medicine; ATTEND Internal Medicine

== ENCOUNTER 2019-02-05 13:42 | Inpatient (IN) ==
[2019-02-05] MEDS ORDERED: ACETAMINOPHEN 325 MG TABLET PO PRN (16:31)
[2019-02-05] MEDS ORDERED: DOCUSATE SODIUM 100 MG CAPSULE PO PRN (16:31)
[2019-02-05] MEDS ORDERED: ONDANSETRON 4 MG/2 ML VIAL IV PRN (16:31)
[2019-02-05] MEDS ORDERED: SODIUM CHLORIDE 0.9% 1,000 ML IV ONE (17:08)
[2019-02-05] MEDS ORDERED: LACTULOSE 20 GM/30 ML UDCUP PO PRN (17:09)
[2019-02-05 17:13] LABS: Basophils % 0.2 % (0.0-0.8); Eosinophils % 0.7 % (0.00-10.9); Hematocrit 26.5 VOL% (42.0-52.0); Hemoglobin 8.5 GM/DL (14.0-18.0); Immature Granulocytes % 0.7 %; Immature Granulocytes Absolute 0.03 #; Lymphocytes # 0.5 10*3/uL (1.4-4.0); Lymphocytes % 12.1 % (21.2-54.2); Mean Corpuscular HGB Conc 32.1 GM/DL (32-36); Mean Corpuscular Volume 95.3 FL (87-102); Mean Platelet Volume 11.1 FL (9.6-12.0); Monocytes % 21.7 % (1.7-12.7); Neutrophils % 64.6 % (38.7-73.9); Platelet Count 90 T/CUMM (130-400); Red Blood Count 2.78 MC/CUMM (3.8-5.5); Red Cell Distribution Width 14.1 % (9.3-17.3); White Blood Count 4.5 T/CUMM (4-12)
[2019-02-05 17:37] LABS: Albumin 2.2 G/DL (3.4-5.0); Bilirubin,Total 0.4 MG/DL (0.2-1.0); Osmolality,Calculated 287.5 MOS/KG (273-304); Total Protein 6.3 G/DL (6.4-8.3)
[2019-02-05 17:43] LABS: Risk Ratio 8.58; Thyroid Stimulating Hormone 0.472 uIU/ml (0.358-3.74); VLDL CHOLESTEROL 33.6 MG/DL
[2019-02-05] MEDS: ENOXAPARIN 40 MG/0.4 ML SYRINGE SUBCUT SCH (18:55)
[2019-02-05] MEDS: PIPERACILLIN/TAZOBACTAM 3,375 MG in SODIUM CHLORIDE 0.9% 100 ML IV SCH (18:55)
[2019-02-05] MEDS: SODIUM CHLORIDE 0.9% 1,000 ML IV SCH (20:30)
[2019-02-05 20:53] LABS: Apearance,Urine CLEAR (Clear); Bacteria,Urine Occasional /HPF (Few); Bilirubin,Urine Negative (Negative); Blood, Urine Small mg/dL (Negative); Glucose,Urine (UA) Negative (Negative); Hyaline Casts,Urine 3 /LPF (0-3); Ketones,Urine Negative (Negative); Mucus,Urine Occasional /LPF (Occasional); Nitrite,Urine Negative (Negative); Protein,Urine Negative; RBC,Urine 27 /HPF (0-4); Squamous Epithelial Cell,Urine Occasional /HPF (0-10); Urine Color Yellow (Yellow); Urine Specific Gravity 1.014 (1.001-1.035); Urine Urobilinogen < 2.0 EU/DL (0.2-1.0); WBC,Urine 6 /HPF (0-6)
[2019-02-05 21:03] LABS: Band Neutrophils 5 % (0-10); Eosinophils 2 % (0-10); Lymphocytes 10 % (20-55); Nucleated Red Blood Cells 13 (0-5); Segmented Neutrophils 67 % (50-85); Total Cells Counted 100
[2019-02-05 21:05] LABS: Platelet Estimate Decreased
[2019-02-05 21:06] LABS: Macrocytosis Slight
[2019-02-05] MEDS: guaiFENesin/DM ER 600-30 MG TABLET PO SCH (21:07)
[2019-02-06] MEDS: PIPERACILLIN/TAZOBACTAM 3,375 MG in SODIUM CHLORIDE 0.9% 100 ML IV SCH ×3 (01:00→16:33)
[2019-02-06 07:45] LABS: Basophils % 0.2 % (0.0-0.8); Eosinophils # 0.1 10*3/uL (0.0-0.87); Hematocrit 26.9 VOL% (42.0-52.0); Hemoglobin 8.9 GM/DL (14.0-18.0); Immature Granulocytes % 0.4 %; Immature Granulocytes Absolute 0.02 #; Lymphocytes # 0.6 10*3/uL (1.4-4.0); Lymphocytes % 11.4 % (21.2-54.2); Mean Corpuscular HGB Conc 33.1 GM/DL (32-36); Mean Corpuscular Volume 93.7 FL (87-102); Mean Platelet Volume 11.6 FL (9.6-12.0); Monocytes % 19.6 % (1.7-12.7); Neutrophils % 67.4 % (38.7-73.9); Red Blood Count 2.87 MC/CUMM (3.8-5.5); Red Cell Distribution Width 13.9 % (9.3-17.3)
[2019-02-06 07:48] LABS: Platelet Count 81 T/CUMM (130-400)
[2019-02-06 07:59] LABS: Calcium 8.1 MG/DL (8.5-10.1); Osmolality,Calculated 280.7 MOS/KG (273-304)
[2019-02-06 08:16] LABS: Band Neutrophils 5 % (0-10); Eosinophils 1 % (0-10); Hypochromasia Slight; Lymphocytes 4 % (20-55); Segmented Neutrophils 71 % (50-85); Total Cells Counted 100
[2019-02-06 08:17] LABS: Microcytosis 1+
[2019-02-06 08:18] LABS: Platelet Estimate Decreased
[2019-02-06] MEDS: guaiFENesin/DM ER 600-30 MG TABLET PO SCH ×2 (08:36→21:04)
[2019-02-06] MEDS: SODIUM CHLORIDE 0.9% 1,000 ML IV SCH ×2 (08:36→22:15)
[2019-02-06] MEDS: PANTOPRAZOLE 40 MG TABLET PO SCH (09:25)
[2019-02-06] MEDS: ENOXAPARIN 40 MG/0.4 ML SYRINGE SUBCUT SCH ×2 (16:58→21:05)
[2019-02-07] MEDS: PIPERACILLIN/TAZOBACTAM 3,375 MG in SODIUM CHLORIDE 0.9% 100 ML IV SCH ×3 (01:05→17:28)
[2019-02-07 04:52] LABS: Basophils % 0.4 % (0.0-0.8); Eosinophils # 0.1 10*3/uL (0.0-0.87); Hematocrit 29.9 VOL% (42.0-52.0); Hemoglobin 9.9 GM/DL (14.0-18.0); Immature Granulocytes % 0.6 %; Immature Granulocytes Absolute 0.03 #; Lymphocytes # 0.6 10*3/uL (1.4-4.0); Lymphocytes % 11.4 % (21.2-54.2); Mean Corpuscular HGB Conc 33.1 GM/DL (32-36); Mean Corpuscular Volume 93.7 FL (87-102); Mean Platelet Volume 11.7 FL (9.6-12.0); Monocytes % 17.5 % (1.7-12.7); Neutrophils % 69.1 % (38.7-73.9); Platelet Count 109 T/CUMM (130-400); Red Blood Count 3.19 MC/CUMM (3.8-5.5); Red Cell Distribution Width 14.2 % (9.3-17.3); White Blood Count 5.3 T/CUMM (4-12)
[2019-02-07 05:14] LABS: Calcium 8.4 MG/DL (8.5-10.1); Osmolality,Calculated 285.1 MOS/KG (273-304)
[2019-02-07 05:18] LABS: Eosinophils 2 % (0-10); Lymphocytes 9 % (20-55); Platelet Estimate Adequate; Segmented Neutrophils 69 % (50-85); Total Cells Counted 100
[2019-02-07 05:19] LABS: Anisocytosis Slight; Microcytosis 1+; Ovalocytes Slight
[2019-02-07] MEDS ORDERED: FUROSEMIDE 40 MG TABLET PO SCH (09:00)
[2019-02-07] MEDS: carvediloL 6.25 MG TABLET PO SCH (09:44)
[2019-02-07] MEDS: DUTASTERIDE 0.5 MG CAPSULE PO SCH (09:44)
[2019-02-07] MEDS: guaiFENesin/DM ER 600-30 MG TABLET PO SCH ×2 (09:44→21:00)
[2019-02-07] MEDS: ASCORBIC ACID 500 MG TABLET PO SCH (09:44)
[2019-02-07] MEDS: LOSARTAN 25 MG TABLET PO SCH (09:45)
[2019-02-07] MEDS: PANTOPRAZOLE 40 MG TABLET PO SCH (09:45)
[2019-02-07] MEDS: ISOSORBIDE DINITRATE 20 MG TABLET PO SCH (09:45)
[2019-02-07] MEDS ORDERED: BENZONATATE 100 MG CAPSULE PO PRN (11:52)
[2019-02-07] MEDS: SODIUM CHLORIDE 0.9% 1,000 ML IV SCH (17:17)
[2019-02-07] MEDS: ENOXAPARIN 40 MG/0.4 ML SYRINGE SUBCUT SCH (17:28)
[2019-02-08] MEDS: PIPERACILLIN/TAZOBACTAM 3,375 MG in SODIUM CHLORIDE 0.9% 100 ML IV SCH ×3 (00:45→17:29)
[2019-02-08 04:32] LABS: Basophils % 0.4 % (0.0-0.8); Eosinophils # 0.1 10*3/uL (0.0-0.87); Eosinophils % 2.8 % (0.00-10.9); Hematocrit 25.8 VOL% (42.0-52.0); Hemoglobin 8.5 GM/DL (14.0-18.0); Immature Granulocytes % 0.6 %; Immature Granulocytes Absolute 0.03 #; Lymphocytes # 0.9 10*3/uL (1.4-4.0); Lymphocytes % 19.6 % (21.2-54.2); Mean Corpuscular HGB Conc 32.9 GM/DL (32-36); Mean Corpuscular Volume 93.1 FL (87-102); Mean Platelet Volume 10.7 FL (9.6-12.0); Monocytes % 20.7 % (1.7-12.7); Neutrophils % 55.9 % (38.7-73.9); Platelet Count 102 T/CUMM (130-400); Red Blood Count 2.77 MC/CUMM (3.8-5.5); Red Cell Distribution Width 14.4 % (9.3-17.3); White Blood Count 4.6 T/CUMM (4-12)
[2019-02-08 05:01] LABS: Calcium 8.2 MG/DL (8.5-10.1); Osmolality,Calculated 290.7 MOS/KG (273-304)
[2019-02-08 05:40] LABS: Eosinophils 4 % (0-10); Lymphocytes 19 % (20-55); Segmented Neutrophils 57 % (50-85); Total Cells Counted 100
[2019-02-08 05:41] LABS: Anisocytosis 1+; Hypochromasia 1+; Microcytosis 1+; Platelet Estimate Decreased
[2019-02-08] MEDS: ISOSORBIDE DINITRATE 20 MG TABLET PO SCH (09:16)
[2019-02-08] MEDS: DUTASTERIDE 0.5 MG CAPSULE PO SCH (09:16)
[2019-02-08] MEDS: guaiFENesin/DM ER 600-30 MG TABLET PO SCH ×2 (09:16→21:15)
[2019-02-08] MEDS: carvediloL 6.25 MG TABLET PO SCH (09:17)
[2019-02-08] MEDS: PANTOPRAZOLE 40 MG TABLET PO SCH (09:17)
[2019-02-08] MEDS: LOSARTAN 25 MG TABLET PO SCH (09:17)
[2019-02-08] MEDS: ASCORBIC ACID 500 MG TABLET PO SCH (09:17)
[2019-02-08] MEDS: ENOXAPARIN 40 MG/0.4 ML SYRINGE SUBCUT SCH (17:28)
[2019-02-09] MEDS: PIPERACILLIN/TAZOBACTAM 3,375 MG in SODIUM CHLORIDE 0.9% 100 ML IV SCH ×3 (01:33→09:56)
[2019-02-09 05:22] LABS: Basophils % 0.4 % (0.0-0.8); Eosinophils # 0.2 10*3/uL (0.0-0.87); Eosinophils % 4.2 % (0.00-10.9); Hematocrit 27.6 VOL% (42.0-52.0); Hemoglobin 9.1 GM/DL (14.0-18.0); Immature Granulocytes % 1.1 %; Immature Granulocytes Absolute 0.05 #; Lymphocytes # 0.9 10*3/uL (1.4-4.0); Lymphocytes % 20.5 % (21.2-54.2); Mean Corpuscular Volume 93.9 FL (87-102); Mean Platelet Volume 10.7 FL (9.6-12.0); Monocytes % 14.6 % (1.7-12.7); Neutrophils % 59.2 % (38.7-73.9); Platelet Count 128 T/CUMM (130-400); Red Blood Count 2.94 MC/CUMM (3.8-5.5); Red Cell Distribution Width 14.3 % (9.3-17.3); White Blood Count 4.5 T/CUMM (4-12)
[2019-02-09 05:50] LABS: Anisocytosis 1+; Band Neutrophils 5 % (0-10); Calcium 8.5 MG/DL (8.5-10.1); Eosinophils 6 % (0-10); Lymphocytes 18 % (20-55); Osmolality,Calculated 282.3 MOS/KG (273-304); Platelet Estimate Adequate; Segmented Neutrophils 57 % (50-85); Total Cells Counted 100
[2019-02-09 05:51] LABS: Macrocytosis Slight
[2019-02-09 07:36] VITALS: BP 129/58
[2019-02-09] MEDS ORDERED: FUROSEMIDE 40 MG TABLET PO SCH (09:00)
[2019-02-09] MEDS: DUTASTERIDE 0.5 MG CAPSULE PO SCH (09:38)
[2019-02-09] MEDS: LOSARTAN 25 MG TABLET PO SCH (09:38)
[2019-02-09] MEDS: ISOSORBIDE DINITRATE 20 MG TABLET PO SCH (09:38)
[2019-02-09] MEDS: carvediloL 6.25 MG TABLET PO SCH (09:38)
[2019-02-09] MEDS: PANTOPRAZOLE 40 MG TABLET PO SCH (09:39)
[2019-02-09] MEDS: ASCORBIC ACID 500 MG TABLET PO SCH (09:39)
[2019-02-09] MEDS: guaiFENesin/DM ER 600-30 MG TABLET PO SCH (09:42)
== END 2019-02-09 11:04 | disposition home health service (06) | DRG 872 ==
LOC: SUATTDRO 15:41 → N.TELES 15:41
PROVIDERS: ADMIT Nurse Practitioner Family; ATTEND Internal Medicine

== ENCOUNTER 2019-04-02 14:21 | Inpatient (IN) ==
[2019-04-02 19:06] LABS: Basophils % 0.3 % (0.0-0.8); Eosinophils # 0.1 10*3/uL (0.0-0.87); Eosinophils % 0.8 % (0.00-10.9); Hematocrit 32.1 VOL% (42.0-52.0); Immature Granulocytes % 1.7 %; Lymphocytes # 1.1 10*3/uL (1.4-4.0); Lymphocytes % 17.5 % (21.2-54.2); Mean Corpuscular HGB Conc 37.4 GM/DL (32-36); Mean Corpuscular Volume 98.8 FL (87-102); Mean Platelet Volume 11.3 FL (9.6-12.0); Monocytes % 10.9 % (1.7-12.7); Neutrophils % 68.8 % (38.7-73.9); Platelet Count 89 T/CUMM (130-400); Red Blood Count 3.25 MC/CUMM (3.8-5.5); Red Cell Distribution Width 21.6 % (9.3-17.3)
[2019-04-02] MEDS ORDERED: NOREPINEPHRINE 8 MG in SODIUM CHLORIDE 0.9% 242 ML IV PRN (19:17)
[2019-04-02 19:28] LABS: Albumin 2.1 G/DL (3.4-5.0); Bilirubin,Total 1.8 MG/DL (0.2-1.0); Calcium 8.1 MG/DL (8.5-10.1); Osmolality,Calculated 278.7 MOS/KG (273-304); Total Protein 6.8 G/DL (6.4-8.3)
[2019-04-02] MEDS ORDERED: SODIUM CHLORIDE 0.9% 1,000 ML IV SCH (20:00)
[2019-04-02 21:02] LABS: Platelet Estimate Decreased
[2019-04-02 21:20] LABS: Apearance,Urine Slightly Hazy (Clear); Bilirubin,Urine Negative (Negative); Blood, Urine Large mg/dL (Negative); Glucose,Urine (UA) Negative (Negative); Ketones,Urine Negative (Negative); Mucus,Urine Occasional /LPF (Occasional); Nitrite,Urine Negative (Negative); Protein,Urine Negative; RBC,Urine 162 /HPF (0-4); Urine Color Yellow (Yellow); Urine Specific Gravity 1.013 (1.001-1.035); Urine Urobilinogen < 2.0 EU/DL (0.2-1.0); WBC,Urine 57 /HPF (0-6)
[2019-04-02] MEDS: PIPERACILLIN/TAZOBACTAM 3,375 MG in SODIUM CHLORIDE 0.9% 100 ML IV SCH (21:40)
[2019-04-03 05:46] LABS: Basophils % 0.3 % (0.0-0.8); Eosinophils # 0.2 10*3/uL (0.0-0.87); Eosinophils % 3.2 % (0.00-10.9); Hemoglobin 11.2 GM/DL (14.0-18.0); Immature Granulocytes % 1.1 %; Immature Granulocytes Absolute 0.07 #; Lymphocytes # 0.9 10*3/uL (1.4-4.0); Lymphocytes % 13.7 % (21.2-54.2); Mean Corpuscular HGB Conc 41.9 GM/DL (32-36); Mean Corpuscular Volume 98.9 FL (87-102); Mean Platelet Volume 11.9 FL (9.6-12.0); Monocytes % 10.6 % (1.7-12.7); Neutrophils % 71.1 % (38.7-73.9); Platelet Count 73 T/CUMM (130-400); Red Cell Distribution Width 22.5 % (9.3-17.3); White Blood Count 6.5 T/CUMM (4-12)
[2019-04-03] MEDS: PIPERACILLIN/TAZOBACTAM 3,375 MG in SODIUM CHLORIDE 0.9% 100 ML IV SCH (06:04)
[2019-04-03 06:14] LABS: Hematocrit 30.6 VOL% (42.0-52.0)
[2019-04-03 06:24] LABS: Atypical Lymphocytes Few; Band Neutrophils 7 % (0-10); Eosinophils 5 % (0-10); Hypochromasia 1+; Lymphocytes 14 % (20-55); Platelet Estimate Decreased; Segmented Neutrophils 62 % (50-85); Total Cells Counted 100
[2019-04-03 06:29] LABS: Calcium 8.2 MG/DL (8.5-10.1); Thyroid Stimulating Hormone 1.36 uIU/ml (0.358-3.74)
[2019-04-03] MEDS: ASPIRIN EC 81 MG TABLET PO SCH (08:00)
[2019-04-03] MEDS: DUTASTERIDE 0.5 MG CAPSULE PO SCH (08:00)
[2019-04-03] MEDS ORDERED: CLOPIDOGREL 75 MG TABLET PO SCH (09:00)
[2019-04-03] MEDS ORDERED: ENOXAPARIN 30 MG/0.3 ML SYRINGE SUBCUT SCH (11:00)
[2019-04-03] MEDS: RANITIDINE 150 MG TABLET PO SCH ×2 (11:32→21:21)
[2019-04-03] MEDS: cefTRIAXone 2,000 MG in SYRINGE 1 EACH IV SCH (11:32)
[2019-04-03] MEDS ORDERED: ZIPRASIDONE 20 MG/1 ML VIAL IM PRN (20:09)
[2019-04-04] MEDS: ZINC OXIDE PASTE 113 GM TUBE TOP SCH ×2 (02:11→09:11)
[2019-04-04 08:07] LABS: Calcium 8.6 MG/DL (8.5-10.1); Osmolality,Calculated 281.4 MOS/KG (273-304)
[2019-04-04 08:11] LABS: Basophils % 0.3 % (0.0-0.8); Eosinophils # 0.2 10*3/uL (0.0-0.87); Eosinophils % 2.3 % (0.00-10.9); Hematocrit 33.7 VOL% (42.0-52.0); Immature Granulocytes % 2.3 %; Lymphocytes # 1.2 10*3/uL (1.4-4.0); Lymphocytes % 14.3 % (21.2-54.2); Mean Corpuscular HGB Conc 35.6 GM/DL (32-36); Mean Corpuscular Volume 95.5 FL (87-102); NRBC # 0.02 10*3/uL; Neutrophils % 69.8 % (38.7-73.9); Platelet Count 70 T/CUMM (130-400); Red Blood Count 3.53 MC/CUMM (3.8-5.5); Red Cell Distribution Width 21.2 % (9.3-17.3); White Blood Count 8.7 T/CUMM (4-12)
[2019-04-04 08:23] LABS: Anisocytosis 1+; Band Neutrophils 18 % (0-10); Eosinophils 3 % (0-10); Lymphocytes 11 % (20-55); Platelet Estimate Decreased; Segmented Neutrophils 61 % (50-85); Total Cells Counted 100
[2019-04-04] MEDS: RANITIDINE 150 MG TABLET PO SCH (09:10)
[2019-04-04] MEDS: DUTASTERIDE 0.5 MG CAPSULE PO SCH (09:10)
[2019-04-04] MEDS: ASPIRIN EC 81 MG TABLET PO SCH (09:11)
[2019-04-04] MEDS: cefTRIAXone 2,000 MG in SYRINGE 1 EACH IV SCH (12:06)
[2019-04-04] MEDS: CLOPIDOGREL 75 MG TABLET PO SCH (14:40)
[2019-04-04 21:58] LABS: ABG Base Excess -3.3 MMOL/L (-2.5-2.5); ABG HCO3 21.6 MMOL/L (20-26); ABG Oxygen Saturation 97.9 % (95-100); ABG PCO2 28.6 MM HG (35-48); ABG PH 7.443 (7.35-7.45); ABG PO2 91.2 MM HG (80-95); ABG TCO2 17.2 MMOL/L (23-27); Pt O2 Delivery Device BIPAP
[2019-04-04 22:45] LABS: Troponin I 0.402 NG/ML (0.00-0.045)
[2019-04-04] MEDS ORDERED: METOPROLOL TARTRATE 5 MG/5 ML VIAL IV ONE (22:50)
[2019-04-05] MEDS ORDERED: SODIUM CHLORIDE 0.9% 2,000 ML IV ONE (02:53)
[2019-04-05] MEDS ORDERED: DOXYCYCLINE HYCLATE INJ 100 MG in SODIUM CHLORIDE 0.9% 100 ML IV SCH (03:00)
[2019-04-05 03:42] LABS: Troponin I 0.465 NG/ML (0.00-0.045)
[2019-04-05 03:47] LABS: Alanine Aminotransferase 19 U/L (16-61); Albumin 2.1 G/DL (3.4-5.0); Alkaline Phosphatase 125 U/L (45-117); Aspartate Amino Transferase 28 U/L (0-37); Bilirubin,Indirect 0.9 MG/DL (0.0-1.0); Blood Urea Nitrogen 59 MG/DL (7-18); Calcium 9.1 MG/DL (8.5-10.1); Estimated Glom Filtration Rate 27 ML/MIN; Glucose 148 MG/DL (74-106); Total Protein 8.2 G/DL (6.4-8.3)
[2019-04-05 03:50] LABS: INR 1.2; PT Patient Result 12.8 SECS (9.6-12.2)
[2019-04-05] MEDS: RANITIDINE 150 MG TABLET PO SCH ×3 (04:31→20:22)
[2019-04-05] MEDS: ZINC OXIDE PASTE 113 GM TUBE TOP SCH ×3 (04:31→20:22)
[2019-04-05 04:43] LABS: Basophils # 0.1 10*3/uL (0.0-0.2); Basophils % 0.6 % (0.0-0.8); Eosinophils % 0.1 % (0.00-10.9); Hematocrit 27.1 VOL% (42.0-52.0); Immature Granulocytes % 2.9 %; Immature Granulocytes Absolute 0.41 #; Lymphocytes # 2.3 10*3/uL (1.4-4.0); Lymphocytes % 16.2 % (21.2-54.2); Mean Corpuscular HGB Conc 44.3 GM/DL (32-36); Mean Corpuscular Volume 104.6 FL (87-102); Mean Platelet Volume 12.5 FL (9.6-12.0); Neutrophils % 71.2 % (38.7-73.9); Platelet Count 88 T/CUMM (130-400); Red Blood Count 2.59 MC/CUMM (3.8-5.5); Red Cell Distribution Width 25.9 % (9.3-17.3); White Blood Count 14.1 T/CUMM (4-12)
[2019-04-05] MEDS ORDERED: ACETAMINOPHEN 650 MG SUPP RECTAL PRN (04:55)
[2019-04-05 05:10] LABS: Band Neutrophils 5 % (0-10); Eosinophils 1 % (0-10); Lymphocytes 11 % (20-55); Metamyelocytes 1 %; Segmented Neutrophils 73 % (50-85); Total Cells Counted 100
[2019-04-05 05:11] LABS: Anisocytosis 1+; Macrocytosis 1+; Platelet Estimate Decreased
[2019-04-05] MEDS: SODIUM CHLORIDE 0.9% 1,000 ML IV SCH ×3 (05:14→21:32)
[2019-04-05] MEDS ORDERED: PIPERACILLIN/TAZOBACTAM 3,375 MG in SODIUM CHLORIDE 0.9% 100 ML IV SCH (06:00)
[2019-04-05 09:35] LABS: Allen Test Positive
[2019-04-05 09:36] LABS: ABG HCO3 19.5 MMOL/L (20-26); ABG Oxygen Saturation 98.8 % (95-100); ABG PCO2 31.6 MM HG (35-48); ABG PH 7.371 (7.35-7.45); ABG TCO2 16.4 MMOL/L (23-27)
[2019-04-05] MEDS: ASPIRIN EC 81 MG TABLET PO SCH (11:35)
[2019-04-05] MEDS: CLOPIDOGREL 75 MG TABLET PO SCH (11:35)
[2019-04-05] MEDS: DUTASTERIDE 0.5 MG CAPSULE PO SCH (11:35)
[2019-04-05] MEDS: PIPERACILLIN/TAZOBACTAM 3,375 MG in SODIUM CHLORIDE 0.9% 100 ML IV SCH ×2 (11:47→20:23)
[2019-04-05] MEDS ORDERED: cefTRIAXone 1,000 MG in SYRINGE 1 EACH IV SCH (12:30)
[2019-04-05] MEDS: carvediloL 3.125 MG TABLET PO SCH (16:05)
[2019-04-05] MEDS: LACTULOSE 20 GM/30 ML UDCUP PO SCH ×2 (16:05→20:22)
[2019-04-05] MEDS ORDERED: carvediloL 6.25 MG TABLET PO SCH (17:00)
[2019-04-06] MEDS: SODIUM CHLORIDE 0.9% 1,000 ML IV SCH (05:26)
[2019-04-06 08:16] LABS: Calcium 8.4 MG/DL (8.5-10.1); Osmolality,Calculated 293.3 MOS/KG (273-304)
[2019-04-06] MEDS ORDERED: MORPHINE 4 MG/1 ML VIAL IV PRN (08:30)
[2019-04-06] MEDS: ASPIRIN EC 81 MG TABLET PO SCH (08:49)
[2019-04-06] MEDS: RANITIDINE 150 MG TABLET PO SCH ×2 (08:49→20:37)
[2019-04-06] MEDS: DUTASTERIDE 0.5 MG CAPSULE PO SCH (08:49)
[2019-04-06] MEDS: carvediloL 3.125 MG TABLET PO SCH ×2 (08:49→17:36)
[2019-04-06] MEDS: LACTULOSE 20 GM/30 ML UDCUP PO SCH ×3 (08:50→20:36)
[2019-04-06] MEDS ORDERED: LEVOFLOXACIN INJ 750 MG in PREMIX 1 EACH IV SCH (09:00)
[2019-04-06] MEDS ORDERED: ASCORBIC ACID 500 MG TABLET PO SCH (09:00)
[2019-04-06] MEDS: ZINC OXIDE PASTE 113 GM TUBE TOP SCH ×2 (09:57→20:37)
[2019-04-06] MEDS: MORPHINE 4 MG/1 ML VIAL IV PRN ×7 (11:13→23:58)
[2019-04-06] MEDS: MEROPENEM 500 MG in SODIUM CHLORIDE 0.9% 100 ML IV SCH ×2 (11:15→17:36)
[2019-04-06] MEDS: FUROSEMIDE 100 MG/10 ML VIAL IV SCH (11:24)
[2019-04-06 18:29] VITALS: BP 108/70
[2019-04-07] MEDS: MEROPENEM 500 MG in SODIUM CHLORIDE 0.9% 100 ML IV SCH ×2 (00:01→08:57)
[2019-04-07] MEDS: SODIUM CHLORIDE 0.9% 1,000 ML IV SCH (00:47)
[2019-04-07] MEDS: MORPHINE 4 MG/1 ML VIAL IV PRN ×5 (02:58→12:05)
[2019-04-07] MEDS: carvediloL 3.125 MG TABLET PO SCH (07:10)
[2019-04-07] MEDS: FUROSEMIDE 100 MG/10 ML VIAL IV SCH (08:57)
[2019-04-07] MEDS: DUTASTERIDE 0.5 MG CAPSULE PO SCH (08:57)
[2019-04-07] MEDS: LACTULOSE 20 GM/30 ML UDCUP PO SCH (08:58)
[2019-04-07] MEDS: ASPIRIN EC 81 MG TABLET PO SCH (08:58)
[2019-04-07] MEDS: RANITIDINE 150 MG TABLET PO SCH (08:58)
[2019-04-07] MEDS: ZINC OXIDE PASTE 113 GM TUBE TOP SCH (08:58)
[2019-04-07] MEDS ORDERED: LORazepam 1 MG TABLET PER TUBE PRN (09:46)
== END 2019-04-07 14:04 | disposition expired | DRG 871 ==
LOC: N.ICU 16:58 → SUATTDRO 16:58 → N.2E 04-03 14:50 → N.ICU 04-04 23:02 → N.4E 04-07 12:46
PROVIDERS: ADMIT Internal Medicine; ATTEND Internal Medicine